=== PATIENT | male | born 1980 | race Hispanic/Latino ===

== ENCOUNTER 2024-06-03 21:25 | Emergency (ER) | payer BC ==
[~2024-06-03] VITALS: Ht 165.1 cm; Wt 77.1 kg
[2024-06-03 21:27] VITALS: TEMP 97.6
[2024-06-03] MEDS: Solu-medROL 125MG VIAL IVP ONE (21:44)
[2024-06-03] MEDS: LORazepam 2 MG/ML 1 ML VIAL IVP ONE (21:44)
[2024-06-03] MEDS: Solu-medROL 125MG VIAL ONE (21:45)
[2024-06-03] MEDS: LORazepam 2 MG/ML 1 ML VIAL ONE (21:45)
[2024-06-03] MEDS: MAGNESIUM 2GM PREMIX 50ML 50 ML IV ONE (21:45)
[2024-06-03] MEDS: MAGNESIUM 2GM PREMIX 50ML 50 ML IV SCH (21:49)
[2024-06-03] MEDS: 0.9%NACL 1000ML 1,000 ML IV ONE (21:49)
[2024-06-03 21:55] LABS: ABG BASE EXCESS -6.3 mmol/L (-2.0-3.0); ABG HCO3 19.6 mmol/L (21.0-28.0); ABG OXYGEN SATURATION 99.2 % (94.0-98.0); ABG PCO2 40 mmHg (35-48); ABG PH 7.304 (7.350-7.450); DEVICE COMMENT RR; PO2, ARTERIAL BG 192.8 mmHg (83.0-108.0); VENT MODE, BG AERO MASK (ROOM AIR)
[2024-06-03 22:00] VITALS: PULSE 110; RESP 24
[2024-06-03] MEDS: IpraTROPium 0.5 MG/2.5 ML INH IH ONE (22:00)
[2024-06-03] MEDS: ALBUTEROL 0.083% 2.5 MG/3 ML INH IH ONE ×2 (22:00→23:52)
[2024-06-03 22:01] VITALS: PULSE 110; RESP 22
--- NOTE | 2024-06-03 22:06 | ERN ---
General Chief Complaint: Adult-Asthma Stated Complaint: ASTHMA ATTACK Time Seen by MD: 21:30 History of Present Illness Initial Comments 43-year-old male, history of asthma, presents for shortness of breath. He reports that he has been feeling some dyspnea over the last couple of weeks. He has a history of asthma and reports this as a asthma exacerbation. He has been using his albuterol inhaler at home. Today he was driving home and reports that his albuterol inhaler was not working. He feels very anxious he feels like he can not breathe. He denies any sore throat, fevers, productive sputum, swelling, or chest pain. Past Medical History Past Medical History: Asthma Past Surgical History: Unknown ROS Dictation CONSTITUTIONAL: No chills, no fever, no weakness, no diaphoresis, no malaise. HEAD/FACE: No signs of trauma. EENT: No eye pain, no blurred vision, no tearing, no double vision, no ear pain, no ear discharge, no nose pain, no nasal congestion, no throat pain, no throat swelling, no mouth pain. RESPIRATORY: Dyspnea, wheezing CARDIOVASCULAR: No chest pain, no edema, no palpitations, no syncope. GASTROINTESTINAL/ABDOMINAL: No abdominal pain, no constipation, no diarrhea, no nausea, no vomiting. GENITOURINARY: No abnormal discharge, no dysuria, no frequent urination, no hematuria. No complaints of pain in the genitals. MUSCULOSKELETAL: No back pain, no gout, no joint pain, no joint swelling, no muscle pain, no muscle stiffness, no neck pain. INTEGUMENTARY: No change in color, no change in hair/nails, no dryness, no lesion, no lumps, no rash. NEUROLOGICAL/PSYCH: No anxiety, not depressed, no emotional problem, no headache, no numbness, no pre-existing deficit, no history of seizures, no tremors, no weakness. HEMATOLOGIC/LYMPHATIC: Not anemic, no history of blood clots, no apparent bleeding, no bruising, glands not swollen. All Systems Negative, Except as Noted. Physical Exam Physical Exam Dictation VITAL SIGNS: Reviewed. GENERAL APPEARANCE: Alert, oriented x3, no acute distress, obese. HEAD AND FACE: Non-traumatic. EYES: PERRL, pink conjunctivas, eyelid no trauma, anterior chamber clear. EARS: Pinnas intact and no signs of trauma or erythema. Ear canals clear and no discharge. TMs no erythema. NOSE: No discharge, no bleeding. OROPHARYNX: Mouth normal, teeth no caries, tongue pink. Pharynx clear, no erythema. Tonsils no exudates, no abscesses noted. Mucous membrane moist. NECK: Supple, non-tender, no thyromegaly, no masses, no JVD, no bruits. BREAST: Deferred. CHEST: No tenderness, no crepitus, no paradoxical movement, no retractions. LUNGS: wheezing, decreased breath sounds HEART: Regular rate, regular rhythm, no murmur, no gallops. VASCULAR: No peripheral edema. ABDOMEN: Soft, positive bowel sounds, nondistended, no guarding, nontender, no rebound, no masses no hepatomegaly, no splenomegaly, no Hebert's sign, no hernias. RECTAL: Deferred. GENITAL: Deferred. NEUROLOGICAL: Normal speech, gross motor function intact, gross sensory function intact. MUSCULOSKELETAL: Neck nontender, full range of motion, back nontender, full range of motion. EXTREMITIES: Nontender, full range of motion. SKIN: Color pink, dry, no turgor, no rash, no lacerations, no abrasions, no contusions. LYMPHATICS: Deferred. Results Laboratory and Microbiology Lab and Micro Result Laboratory Tests Test 06/03/24 21:54 Blood Gas Specimen Type Arterial Arterial Blood pH 7.304 (7.350-7.450) Arterial Blood Partial Pressure CO2 40 mmHg (35-48) Arterial Blood Partial Pressure O2 192.8 mmHg (83.0-108.0) H Arterial Blood HCO3 19.6 mmol/L (21.0-28.0) L Arterial Blood Oxygen Saturation 99.2 % (94.0-98.0) H Arterial Blood Base Excess -6.3 mmol/L (-2.0-3.0) L Blood Gas Temperature 37.0 CELSIUS (35.5-37.0) Blood Gas Flow-by 6.00 L/min (0.00-15.00) Blood Gas Vent Mode AERO MASK (ROOM AIR) FiO2 50.0 % Blood Gas Specimen Comment RR MDM CC: Dyspnea wheezing Historian: Patient Comorbidities: Asthma Limitations by social determinants of health: Uninsured Differential diagnosis: Asthma exacerbation, pneumonia Patient came in in moderate distress. Tachypneic breathing about 40 times a minute. Satting 93% on room air. Tachycardic. Wheezing in all lobes. Decreased air movement. Patient initially started on nebulized albuterol 10 mg, 500 mcg of Atrovent, 125 mg IV Solu-Medrol and a fluid bolus. ABG stable. Re-evaluation the patient still has some wheezing but is improving. Given another 10 mg of albuterol. After 2 hours I re-evaluated patient. Very minimal wheezing, reports feeling much better. He reports that he has not anxiety symptoms with the has a exacerbation, you received some Ativan in his did improve his breathing. I did offer the patient admission, but he prefers outpatient treatment this time. Will discharged with Medrol Dosepak, azithromycin, albuterol, And short course of antianxiety Valium. ED Course Orders Procedure Category Date Status Time Albuterol 0.083% PHA 06/03/24 Complete 2.5mg/3ml (Proventil 21:30 Magnesium 2gm Premix PHA 06/03/24 In Process 50ml (Magnesium 2gm 21:30 Methylprednisolone PHA 06/03/24 Complete Succ 125mg (Solu-Medr 21:30 Magnesium 2gm Premix PHA 06/03/24 Complete 50ml (Magnesium 2gm 21:30 Methylprednisolone PHA 06/03/24 Complete Succ 125mg (Solu-Medr 21:30 Chest 1vw RAD 06/03/24 Taken 21:30 12 Lead Ekg Tracing- EKG 06/03/24 Logged Technical 21:30 Ipratropium 0.5 PHA 06/03/24 Complete Mg/2.5 Ml Inh 21:30 0.9%Nacl 1000ml (Ns PHA 06/03/24 Complete 1000ml) 21:30 Lorazepam 2 Mg PHA 06/03/24 Complete (Ativan) 22:00 Arterial Blood Gas RT 06/03/24 Transmitted 21:37 Lorazepam 2 Mg PHA 06/03/24 Complete (Ativan) 21:39 Arterial Blood Gas LAB 06/03/24 Complete 21:54 Albuterol 0.083% PHA 06/03/24 Complete 2.5mg/3ml (Proventil 23:00 Current Medications Medications (Trade) Dose Ordered Sig/July Route PRN Reason Start Time Stop Time Status Last Admin Dose Admin Albuterol Sulfate (Proventil 0.083% 2.5mg/3ml) 10 mg ONCE ONCE IH 06/03/24 21:30 06/03/24 21:31 DC 06/03/24 22:00 Albuterol Sulfate (Proventil 0.083% 2.5mg/3ml) 10 mg ONCE ONCE IH 06/03/24 23:00 06/03/24 23:01 DC Ipratropium [place] (AtrovENT UD) 0.5 mg ONCE ONCE IH 06/03/24 21:30 06/03/24 21:32 DC 06/03/24 22:00 Lorazepam (AtiVAN) 1 mg ONCE ONCE IVP 06/03/24 22:00 06/03/24 22:01 DC 06/03/24 21:44 Lorazepam (AtiVAN) 2 mg STK-MED ONCE .ROUTE 06/03/24 21:39 06/03/24 21:39 DC Magnesium Sulfate 50 ml @ 0 mls/hr PROTOCOL IV 06/03/24 21:30 07/03/24 21:29 06/03/24 21:49 Magnesium Sulfate 50 ml @ As Directed STK-MED ONCE IV 06/03/24 21:30 06/03/24 21:30 DC Methylprednisolone Sodium Succinate (Solu-medROL 125MG) 125 mg ONCE ONCE IVP 06/03/24 21:30 06/03/24 21:31 DC 06/03/24 21:44 Methylprednisolone Sodium Succinate (Solu-medROL 125MG) 125 mg STK-MED ONCE .ROUTE 06/03/24 21:30 06/03/24 21:30 DC Sodium Chloride 1,000 ml @ 0 mls/hr ONCE ONCE IV 06/03/24 21:30 06/03/24 21:32 DC 06/03/24 21:49 Vital Signs Date Time Temp Pulse Resp B/P (MAP) Pulse Ox O2 Delivery O2 Flow Rate FiO2 06/03/24 22:01 110 22 06/03/24 22:00 110 24 06/03/24 21:34 110 22 139/100 95 Nasal Cannula* 2 28 06/03/24 21:27 97.5 115 48 155/122 93 Room Air DX & DISP Disposition: Discharge Departure Impression: Primary Impression: Asthma exacerbation Condition: Stable Scripts Diazepam (Valium) 5 Mg Tablet 1 TAB PO TIDP PRN for anxiety for 5 Days, #15 TAB 0 Refills Prov: JASEN TERESA DO 06/03/24 Azithromycin (Azithromycin) 250 Mg Tablet 1 TAB PO AD for 5 Days, #6 TAB 0 Refills 2 the first day followed by 1 for days 2-5 Prov: JASEN TERESA DO 06/03/24 Methylprednisolone (Medrol) 4 Mg Tab.ds.pk 1 TAB PO AD for 6 Days, #21 TAB 0 Refills 6 on day 1 then reduce by one tablet daily until gone Prov: JASEN TERESA DO 06/03/24 Additional Instructions: You have an asthma exacerbation. You received albuterol, Atrovent, Solu-Medrol, Ativan, and IV fluids here in the ER. Your chest x-ray is clear. Your blood gas analysis is stable. I recommend 2.5 mg of nebulized albuterol or two puffs of an albuterol inhaler every 4 hours for the next 24-48 hours. After that you can use as needed. I have prescribed a Medrol Dosepak. This is an anti-inflammatory steroid. Take as prescribed. I have prescribed azithromycin, which is an antibiotic. Please take as prescribed. I have prescribed a short course of Valium, which is an antianxiety medication to use as needed for anxiety symptoms. Be sure to drink plenty of liquids. Please return to the emergency department if you have any concerns. Referrals: SELF,REFERRAL (PCP) JASEN TERESA DO Jun 03, 2024 22:06
[2024-06-03] MEDS ORDERED: AZIT250T9 PO (23:32)
[2024-06-03] MEDS ORDERED: DIAZ5TAB PO (23:32)
[2024-06-03] MEDS ORDERED: METH4TAB3 PO (23:32)
[2024-06-03] MEDS ORDERED: ALBU2.5V2 IH (23:49)
[2024-06-03 23:52] VITALS: PULSE 110; RESP 24
[2024-06-04 00:48] VITALS: BP 113/60; PULSE 99; RESP 19; O2SAT 99
--- NOTE | 2024-06-04 05:05 | EKG ---
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
--- NOTE | 2024-06-04 08:45 | HMCIMG ---
PORTABLE CHEST RADIOGRAPH INDICATION: dyspnea COMPARISON: None FINDINGS: Heart size is normal. The pulmonary vascularity and mateo appear normal. No abnormal pulmonary parenchymal opacity or consolidation identified. No significant pleural effusion noted. No pneumothorax detected. IMPRESSION: No radiographic evidence for any acute cardiopulmonary process.
== END 2024-06-04 01:02 | disposition home or self-care (01) ==
LOC: EDH 21:25
DX: J45.901 Unspecified asthma with (acute) exacerbation (principal); Z59.71 Insufficient health insurance coverage
CPT/HCPCS: 99285; 96365; 96375; 71045; 96366; 82803; 93005; 36600; 94640 ×3; J3475 ×3; J2919; J2060